=== PATIENT | female | born 1960 | race Native Hawaiian/Other Pacific Islander ===

== ENCOUNTER 2021-01-09 10:09 | Outpatient (CLI) | payer OTHER | END 2021-01-09 19:26 | disposition home or self-care (01) | LOC: RAD 10:09 | PROVIDERS: ATTEND General Practice | DX: Z13.820 Encounter for screening for osteoporosis (principal); M81.8 Other osteoporosis without current pathological fracture ==

== ENCOUNTER 2021-01-29 09:58 | Outpatient (CLI) | payer OTHER | END 2021-01-29 19:04 | disposition home or self-care (01) | LOC: MAMMO 09:58 | PROVIDERS: ATTEND General Practice | DX: Z12.31 Encounter for screening mammogram for malignant neoplasm of breast (principal) ==

== ENCOUNTER 2021-12-04 14:04 | Outpatient (CLI) | payer OTHER | END 2021-12-04 19:10 | disposition home or self-care (01) | LOC: CT 14:04 | PROVIDERS: ATTEND General Practice | DX: Z01.89 Encounter for other specified special examinations (principal); F17.210 Nicotine dependence, cigarettes, uncomplicated ==